=== PATIENT | male | born 1965 | race Caucasian/White ===

== ENCOUNTER 2021-04-23 01:05 | Day surgery (SDC) | payer OTHER, SELFPAY ==
[2021-03-27 14:38] VITALS: BMI 37.1
--- NOTE | 2021-04-09 13:03 | PC.NURSE ---
Spoke with patient and confirmed that there are no changes to medication list or past medical history since previous phone call on 03-27-21. Patient informed he should arrive at 0815 for new procedure time of 0945.
--- NOTE | 2021-04-22 14:32 | PM.HPGS ---
History of Present Illness History of Present Illness Consent: Risks, benefits, and alternatives have been discussed and questions answered. Patient agrees to proceed with procedure. Chief complaint: family hx of colon ca, hx of colon polyps,neoplasm Narrative: Harshad Peres is a 56 year old male Referred for colon cancer screening. He has a personal history of polyps and there is also a family history of colon cancer Review of Systems Review of Systems: All systems reviewed & are unremarkable except as noted in HPI and below PMFSH Past Medical History Medical History Obesity Surgical History Surgical History H/O colonoscopy Social History Social History Smoking status: Never smoker Alcohol intake: never Substance use: never Substance use type: does not use Living arrangements: with family Spiritual care concerns: No Meds Home Medications and Allergies Home Medications Medication Instructions Recorded Confirmed Type No Home Medications 03/27/21 04/23/21 History Allergies Allergy/AdvReac Type Severity Reaction Status Date / Time No Known Allergies Allergy Verified 04/23/21 07:46 Exam Resp: Auscultation: clear to auscultation bilaterally Cardio: Rate: regular rate Rhythm: regular rhythm GI: GI Palp: Yes Soft to palpation and No Tenderness to palpation present (GI) Assessment and Plan Assessment and plan (1) Colon cancer screening: Code(s): Z12.11 - Encounter for screening for malignant neoplasm of colon Status: Acute Assessment and Plan: Colonoscopy with possible biopsy or polypectomy or cautery or injection of substances.
[2021-04-23 07:47] VITALS: BP 162/87; PULSE 83; RESP 20; TEMP 36.9; O2SAT 97
--- NOTE | 2021-04-23 07:54 | P.PNAN_ITS ---
Anes - Initial Pre Proc Eval Procedure: Operation Date: 04/23/21 09:45 Proposed Procedures p Screening Colonoscopy - Aditya Chandler MD Date/Time: 04/23/21 07:54 Surgeon: Aditya Chandler MD Pre Op Diagnosis: family hx of colon ca, hx of colon polyps,neoplasm Patient Data Age: 56 Gender: M Height: 1.78 m Weight: 119.8 kg Last Vital Signs Temp 36.9 C 04/23/21 07:47 Pulse 83 04/23/21 07:47 Resp 20 04/23/21 07:47 BP 162/87 H 04/23/21 07:47 Pulse Ox 97 04/23/21 07:47 Allergies Allergy/AdvReac Type Severity Reaction Status Date / Time No Known Allergies Allergy Verified 04/23/21 07:46 Home Medications Medication Instructions Recorded Confirmed Type No Home Medications 03/27/21 04/23/21 History Patient hx anesthesia problems: none Family hx anesthesia problems: none Results Review: All pre-operative results and documents have been reviewed as part of the pre-operative evaluation. [facility] Past Medical History Medical History (Updated 04/23/21 @ 07:54 by Adryan Nicolas MD) Obesity Surgical History Surgical History (Updated 04/23/21 @ 07:55 by Adryan Nicolas MD) H/O colonoscopy Social History Social History Smoking status: Never smoker Alcohol intake: never Substance use: never Substance use type: does not use Living arrangements: with family Spiritual care concerns: No Anes - Eval Final PreProcedure Day of Procedure 04/23/21 07:54 Patient weight: obese Heart: regular rate and rhythm Lungs: clear to auscultation Airway: Mallampati scale class II Neurological: alert and oriented Last oral intake: >/= 8 hours ASA classification: III Emergent: no Anesthetic plan: proceed Anesthesia type and monitoring: general GIVS and standard monitoring Results Review: All pre-operative results and documents have been reviewed as part of the pre-operative evaluation. Informed Consent: The patient's anesthetic plan and its attendant risks and benefits were discussed with the patient/family/POA. Questions were solicited and answers provided to the satisfaction of the patient/family/POA.
[2021-04-23] MEDS: LACTATED RINGERS 1,000 ML 150 ML IV CONT (08:04)
[2021-04-23] MEDS: SIMETHICONE ORAL SUSPENSION 20 MG/0.3 ML 30 ML BOTTLE 0.6 ML IRRIGATION (09:10)
[2021-04-23 09:25] VITALS: BP 133/77; PULSE 81; RESP 14; O2SAT 97
[2021-04-23 09:35] VITALS: BP 125/84; PULSE 86; RESP 15; O2SAT 96
[2021-04-23 09:45] VITALS: BP 120/88; PULSE 82; RESP 17; O2SAT 97
== END 2021-04-23 09:50 | disposition home or self-care (01) ==
PROVIDERS: PCP Nurse Practitioner Family; Visit Provider Internal Medicine Gastroenterology
PROC: 0DJD8ZZ Inspection of Lower Intestinal Tract, Via Natural or Artificial Opening Endoscopic (ICD-10-PCS; CPT 45378; principal; 2021-04-23 09:45)
DX: Z12.11 Encounter for screening for malignant neoplasm of colon (principal); D12.5 Benign neoplasm of sigmoid colon; D17.5 Benign lipomatous neoplasm of intra-abdominal organs; K62.1 Rectal polyp; Z80.0 Family history of malignant neoplasm of digestive organs; E66.9 Obesity, unspecified; Z68.37 Body mass index [BMI] 37.0-37.9, adult
CPT/HCPCS: 45380; 45385; 88305; J2704; J7120

== ENCOUNTER 2023-03-29 06:57 | Emergency (ER) | payer BC, SELFPAY ==
[2023-03-29] VITALS (10 sets, daily range): BP systolic 130–162; BP diastolic 75–97; PULSE 88–103; RESP 16; TEMP 36.6; O2SAT 96–100
--- NOTE | ~2023-03-29 | CT_ITS ---
EXAMINATION: CT abdomen pelvis w con DATE: 03/29/2023 08:23 INDICATION: Right flank and suprapubic pain TECHNIQUE: Computed tomography (CT) of the abdomen and pelvis was performed with 100 cc Omnipaque 350 intravenous contrast. The dose-length product was 1338.31 mGy-cm. Automated exposure control and ite rative reconstruction technique were employed. COMPARISON: None. FINDINGS: Lung bases unremarkable. Heart size normal. No significant pleural or pericardial effusion. Fatty infiltration of the liver. Gallstones. The spleen, pancreas, adrenal glands and right kidney a re unremarkable. There is a 3 mm nonobstructing left renal stone. Nonobstructive bowel gas pattern. M ild atherosclerosis. No aneurysm. No lymphadenopathy. 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 Mild lumbar spondyl osis. No free air or free fluid. IMPRESSION: 1. Cholelithiasis. 2: Nonobstructing left nephrolithiasis. 3: Fatty infiltration of the liver. Reviewed, dictated and finalized at location [facility] [employer]
[2023-03-29 07:47] LABS: Basophils Absolute Auto 0.1 K/mm3 (0.0-0.1); Basophils Percent Auto 1.1 % (0.2-1.2); Eosinophils Absolute Auto 0.1 K/mm3 (0-0.3); Eosinophils Percent Auto 1.9 % (0-4.4); Hematocrit 48.3 % (42.0-52.0); Immature Granulocyte Absolute 0.02 K/mm3 (0.00-0.031); Immature Granulocyte Percent A 0.4 % (0-0.5); Lymphocytes Absolute Auto 1.26 K/mm3 (0.9-3.2); Lymphocytes Percent Auto 27.2 % (18.3-44.2); Mean Corpuscular HGB Conc 33.1 g/dl (32-36); Mean Corpuscular Hemoglobin 32.3 pg (26-34); Mean Corpuscular Volume 97.6 fl (80-100); Mean Platelet Volume 9.1 fl (7.4-10.4); Monocytes Absolute Auto 0.3 K/mm3 (0.1-0.6); Monocytes Percent Auto 7.3 % (2.6-8.5); Neutrophils Absolute Auto 2.9 K/mm3 (1.3-6.7); Neutrophils Percent Auto 62.1 % (45.5-73.1); Platelet Count Result 277 k/mm3 (150-375); Red Blood Count 4.95 M/mm3 (4.6-6.20); Red Cell Distribution Width 11.9 % (11.5-14.5); White Blood Count 4.6 K/mm3 (4.5-10.0)
[2023-03-29 07:54] LABS: Appearance Urine Clear (Clear); Bacteria Urine None Seen /hpf; Bilirubin Urine Negative (Negative); Blood Urine Negative (Negative); Color Urine Yellow (Yellow); Glucose Urine UA Negative (Negative); Ketones Urine Negative (Negative); Leukocyte Esterase Ur Trace LEU/UL (Negative); Nitrate Urine Negative (Negative); Non Pathogenic Casts 0-2; Protein Urine Negative (Negative); RBC Urine 0-2 /hpf (0-2); Specific Grav Ur 1.023 (1.001-1.035); Squamous Epithelial Cell Urine None seen /hpf (Few); WBC Urine 0-5 /hpf; pH Urine 5.5 (5.0-9.0)
[2023-03-29 07:56] LABS: Add Urine Microscopic? YES
[2023-03-29 07:58] LABS: Alanine Aminotransferase 29 U/L (6-50); Albumin Level 4.5 g/dL (3.5-5.1); Alkaline Phosphatase 54 U/L (38-126); Anion Gap 10 mmol/L (8-16); Aspartate Amino Transferase 26 U/L (17-59); Bilirubin,Total 1.1 mg/dL (0.2-1.3); Blood Urea Nitrogen 20 mg/dL (9-20); Calcium 9.3 mg/dL (8.4-10.2); Carbon Dioxide 24 mmol/L (22-30); Chloride 103 mmol/L (98-107); Estimated CRCL calculation 128 ml/min; Estimated Glomerular Filt Rate > 60; Glucose 218 mg/dL (65-110); Lipase 96 U/L (23-300); Potassium 4.4 mmol/L (3.4-5.0); Sodium 137 mmol/L (137-145)
--- NOTE | 2023-03-29 08:07 | ED.ABDPAIN ---
HPI - Abdominal Pain General Chief Complaint: Abdominal Pain Stated Complaint: abdominal pain Time Seen by Provider: 03/29/23 07:44 History of Present Illness HPI narrative: 58-year-old male presenting to the emergency department for evaluation of right flank pain. Patient does have a history of kidney stones but states this pain feels different. Pain started in the right flank but is now progressed to suprapubic pain. Patient denies associated nausea vomiting constipation or diarrhea. Patient previous had urology follow-up in [place] but has not needed urology follow-up since 2005 when they moved here. Related Data Home Medications Medication Instructions Recorded Confirmed No Home Medications 03/27/21 04/23/21 Allergies Allergy/AdvReac Type Severity Reaction Status Date / Time No Known Allergies Allergy Verified 04/23/21 07:46 Review of Systems Review of Systems: All systems reviewed & are unremarkable except as noted in HPI and below PMFSH Past Medical History Medical History Obesity Surgical History Surgical History H/O colonoscopy Social History Social History Smoking status: Never smoker Alcohol intake: never Substance use: never Substance use type: does not use Living arrangements: with family Spiritual care concerns: No Exam Narrative: APPEARANCE: Well appearing, no pain, no distress, well-nourished. HEAD: normocephalic, atraumatic. EYES: PERRLA/EOMI, conjunctivae clear. NOSE: Normal no drainage NECK: Supple. No adenopathy, no masses. RESPIRATORY: Airway patent, respirations nonlabored. Clear to auscultation bilaterally, no rales, rhonchi, wheezing. CARDIOVASCULAR: Regular rate and rhythm without murmurs rubs or gallops. ABDOMINAL: Suprapubic tenderness to palpation MUSCULOSKELETAL: Moves all extremities. Strength/ROM intact, No edema, No calf tenderness. NEURO: Alert. Cranial nerves II through XII intact. Grossly intact SKIN: Warm, dry. Normal Color Course Course Emergency Course: 58-year-old male present to the emergency department for evaluation of right flank pain that progressed to his suprapubic abdominal pain. Patient is afebrile with no leukocytosis and a stable hemoglobin of 16. Patient has no acute abnormalities on his CMP UA did have of leuk esterase but no other evidence of infection. CT scan showed cholelithiasis and left-sided nephrolithiasis but no obstructing kidney stones. Patient and family are updated on the results of the workup and the importance of close follow-up. Patient had no acute urinary retention. Vital Signs Vital signs: Vital Signs Temperature 97.8 F 03/29/23 07:07 Pulse Rate 103 H 03/29/23 07:07 Respiratory Rate 16 03/29/23 07:07 Blood Pressure 139/97 H 03/29/23 07:07 Pulse Oximetry 100 03/29/23 07:07 Oxygen Delivery Room Air 03/29/23 07:07 Temperature 97.8 F 03/29/23 07:07 Pulse Rate 88 03/29/23 07:33 Respiratory Rate 16 03/29/23 07:33 Blood Pressure 130/76 03/29/23 10:01 Pulse Oximetry 96 03/29/23 10:45 Oxygen Delivery Room Air 03/29/23 07:07 MDM - Abdominal Pain Differential Diagnosis Differential diagnosis: Likely abdominal pain, acute appendicitis, calculus of kidney, constipation, diverticulitis, endometriosis, pancreatitis and small bowel obstruction Lab Data Attestation: I reviewed the patient's lab results. 03/29/23 07:41 03/29/23 07:41 Labs: Lab Results 03/29/23 Range/Units 07:41 WBC 4.6 (4.5-10.0) K/mm3 RBC 4.95 (4.6-6.20) M/mm3 Hgb 16.0 (14.0-18.0) g/dL Hct 48.3 (42.0-52.0) % MCV 97.6 (80-100) fl MCH 32.3 (26-34) pg MCHC 33.1 (32-36) g/dl RDW 11.9 (11.5-14.5) % Plt Count 277 (150-375) k/mm3 MPV 9.1 (7.4-10.4) fl Immature Gran % (Auto)
== END 2023-03-29 10:56 | disposition home or self-care (01) ==
PROVIDERS: Emergency Provider Emergency Medicine; PCP Family Medicine
DX: R10.30 Lower abdominal pain, unspecified (principal); E66.9 Obesity, unspecified; Z68.38 Body mass index [BMI] 38.0-38.9, adult; Z87.442 Personal history of urinary calculi; K76.0 Fatty (change of) liver, not elsewhere classified; N20.0 Calculus of kidney; K80.20 Calculus of gallbladder without cholecystitis without obstruction
CPT/HCPCS: 36415; 74177; 80053; 81001; 83690; 85025; 99284; Q9967

== ENCOUNTER 2023-09-02 08:56 | Outpatient (CLI) | payer BC, SELFPAY | END 2023-09-02 08:57 | disposition home or self-care (01) | LOC: ANHAUDASC 08:57 | PROVIDERS: PCP Family Medicine; Visit Provider Physician Assistant | DX: H90.42 Sensorineural hearing loss, unilateral, left ear, with unrestricted hearing on the contralateral side (principal) | CPT/HCPCS: 92557; 92567 ==